=== PATIENT | female | born 1935 | race Hispanic/Latino ===

== ENCOUNTER 2017-10-05 13:41 | Observation (INO) | payer MEDICARE ==
[2017-10-05 14:02] VITALS: BMI 23.4
[2017-10-05 14:12] LABS: BASO # 0.1 K/uL (0.0-0.2); EOS # 0.1 K/uL (0.0-0.7); EOS % 1.8 % (0.0-4.0); HEMOGLOBIN 13.6 g/dL (11.0-16.0); LYMPH # 1.5 K/uL (1.0-4.3); LYMPH % 21.8 % (20.0-40.0); MEAN CELL VOLUME 89.1 fL (81.0-99.0); MEAN CORPUSCULAR HEMOGLOBIN 30.5 pg (27.0-31.0); MEAN CORPUSCULAR HGB CONC 34.2 g/dL (33.0-37.0); MEAN PLATELET VOLUME 8.1 fL (7.2-11.7); MONO # 0.6 K/uL (0.0-0.8); MONO % 8.6 % (0.0-10.0); NEUT # 4.5 K/uL (1.8-7.0); NEUT % 66.8 % (50.0-75.0); RBC 4.48 Mil/uL (3.80-5.20); RED CELL DISTRIBUTION WIDTH 13.5 % (11.5-14.5); WHITE BLOOD COUNT 6.7 K/uL (4.8-10.8)
[2017-10-05 14:20] LABS: INR 1.1; PROTHROMBIN TIME 12.5 SECONDS (9.7-12.2)
[2017-10-05 14:24] LABS: ALB/GLOB RATIO 1.3 (1.0-2.1); ALBUMIN 4.3 g/dL (3.5-5.0); CALCIUM 9.3 mg/dl (8.6-10.4); GFR AFRICAN-AMERICAN > 60; GFR NON-AFRICAN AMERICAN > 60; HDL CHOLESTEROL 33 mg/dL (30-70)
[2017-10-05 14:25] LABS: ALT/SGPT 30 U/L (9-52); AST/SGOT 28 U/L (14-36); BLOOD UREA NITROGEN 18 mg/dL (7-17)
--- NOTE | 2017-10-05 14:27 | CT ---
Date of service: 10/05/2017 PROCEDURE: CT HEAD WITHOUT CONTRAST. HISTORY: Code Stroke COMPARISON: 07/26/2016 TECHNIQUE: Axial computed tomography images were obtained through the head/brain without intravenous contrast. Radiation dose: Total exam DLP = 889.91 mGy-cm. This CT exam was performed using one or more of the following dose reduction techniques: Automated exposure control, adjustment of the mA and/or kV according to patient size, and/or use of iterative reconstruction technique. FINDINGS: HEMORRHAGE: No intracranial hemorrhage. BRAIN: No mass effect or edema. Mild atrophy consistent with age. Moderate patchy and confluent white matter lucency in the periventricular and deep/ subcortical white matter. Consistent with age-related microvascular ischemic change. No evidence of acute infarct. VENTRICLES: Unremarkable. No hydrocephalus. CALVARIUM: Unremarkable. PARANASAL SINUSES: There is a retention cyst or polyp in the inferior left maxillary antrum. MASTOID AIR CELLS: Unremarkable as visualized. No inflammatory changes. OTHER FINDINGS: None. IMPRESSION: No evidence of acute infarct. No intracranial hemorrhage. Age related atrophy and chronic white matter ischemic change. Findings in this examination were reported by telephone to Dr. Trinh 2:24 p.m. at 09/28
[2017-10-05 14:34] LABS: LDL CHOLESTEROL 106 mg/dL (0-129)
--- NOTE | 2017-10-05 14:41 | C.PDOC ---
History Of Present Illness 82-year-old female brought to the emergency department accompanied by son for evaluation of periods of confusion for the past several days. Symptoms were worse this morning, prompting ER visit. Patient is also having upper extremity tremors for approximately one month, for which she was seen by her primary doctor, Dr. Eisenberg, who referred pt to neurologist Dr Vasyl Pollock. As per son , patient was seen by Dr. Pollock, told Parkinson's is unliklely and had an outpatient EEG done last week (not yet read, Dr. Pollock apparently away on vacation). This morning patient was confused about which bathroom to use ( approx 6am), and later was unable to tell time on a clock (episoded lasted approx 2hrs). Patient denies headache, dizziness, facial droop, speech changes , extremity weakness, sensory changes, nausea/vomiting, chest pain, shortness of breath, fever, neck pain, or any other associated symptoms. Time Seen by Provider: 10/05/17 14:01 Chief Complaint (Nursing): Weakness/Neurological Deficit History Per: Patient, Family History/Exam Limitations: no limitations Onset/Duration Of Symptoms: Days Current Symptoms Are (Timing): Still Present Past Medical History Reviewed: Historical Data, Nursing Documentation, Vital Signs Vital Signs: Last Vital Signs Temp 97.9 F 10/06/17 07:45 Pulse 64 10/06/17 11:39 Resp 18 10/06/17 07:45 BP 155/81 H 10/06/17 10:21 Pulse Ox 96 10/06/17 11:40 - Medical History PMH: Arthritis, Back Problems, Gastritis, HTN, Osteoporosis Family History: States: No Known Family Hx - Social History Hx Alcohol Use: No Hx Substance Use: No - Immunization History Hx Tetanus Toxoid Vaccination: No Hx Influenza Vaccination: No Hx Pneumococcal Vaccination: No Review Of Systems Constitutional: Negative for: Fever, Chills Cardiovascular: Negative for: Chest Pain, Palpitations Respiratory: Negative for: Shortness of Breath Gastrointestinal: Negative for: Nausea, Vomiting Musculoskeletal: Negative for: Neck Pain, Back Pain Neurological: Positive for: Confusion. Negative for: Weakness, Numbness, Incoordination, Change in Speech, Seizures, Headache, Dizziness Physical Exam - Physical Exam Appears: Well, Non-toxic, No Acute Distress Skin: Normal Color, Warm, Dry, No Rash Head: Atraumatic, Normacephalic Eye(s): bilateral: Normal Inspection, PERRL, EOMI Oral Mucosa: Moist Neck: Normal, Normal ROM Cardiovascular: Rhythm Regular Respiratory: Normal Breath Sounds, No Rales, No Rhonchi, No Wheezing Gastrointestinal/Abdominal: Normal Exam, Bowel Sounds, Soft, No Tenderness Extremity: Normal ROM, No Pedal Edema, No Calf Tenderness Pulses: Left Dorsalis Pedis: Normal, Right Dorsalis Pedis: Normal Neurological/Psych: Oriented x3, Normal Speech, Normal Cognition, Normal Cranial Nerves, No Cerebellar Signs, Normal Motor, Normal Sensation, Normal Reflexes, No Expressive Aphasia, No Receptive Aphasia, No Dysarthria, No Romberg (NORMAL FINGER TO NOSE ), Other (occasionally mild tremors of B/L UEs) Gait: Steady (with walker) ED Course And Treatment - Laboratory Results Result Diagrams: 10/06/17 08:02 10/06/17 08:02 ECG: Interpreted By Me, Viewed By Me ECG Rhythm: Sinus Rhythm ECG Interpretation: Abnormal Interpretation Of ECG: Occasional PVC's. Normal axis. Rate From EC (BPM ) Progress Note: CT head, EKG, UA, blood work ordered and reviewed. Patient given PO ASA, PO Depakote, IV NS bolus. 3:30pm- Spoke with Dr. Eisenberg, agrees with admission to hospitalist service, is ok with our neurohospitalist Dr. Baxter seeing patient during this admission if unable to get Dr. Pollock. 3:40pm- Spoke with hospitalist Dr. Reilly, agrees with admission for tremors, AMS, r/o TIA /CVA vs seizures. - Physician Consult Information Physician Contacted: Bibi Baxter Outcome Of Conversation: Discussed patient with neurohospitalist Dr. Baxter, patient possible having seizures - recommends Depakote 1000mg now, then Depakote 500mg PO BID and MRI of brain with contrast. NIHSS Stroke Scale 2 - Date/Time Evaluation Performed Date Performed: 10/05/17 Time Performed: 13:55 When Was NIHSS Performed: Baseline - How Severe is the Stroke Level of Consciousness: 0=Alert LOC to Questions: 0=Both comments correct LOC to commands: 0=Obeys both correctly Best Gaze: 0=Normal Visual: 0=No visual loss Facial: 0=Normal Motor Arm - Left: 0=No drift Motor Arm - Right: 0=No drift Motor Leg - Left: 0=No drift Motor Leg - Right: 0=No drift Limb Ataxia: 0=Absent Sensory: 0=Normal Best Language: 0=No aphasia Dysarthia: 0=Normal articulation Extinction & Inattention (Neglect): 0=Normal, no object Score: 0 rTPA Inclusion/Exclusion - Refusal of Treatment Patient Refused Treatment: No - Inclusion Criteria for Altepase Patient is 18 years or Older: Yes The Clinical Diagnosis of Ischemic Stroke That is Causing a Potentially Disabling Neurological Deficit: No Time of Onset is Well Established to be Less Than 270 Minute Before Treatment Would Begin: No Risk/Benefit Discussed With Patient/Family Member Present: No Disposition - Disposition Disposition: HOSPITALIZED Disposition Time: 15:40 Condition: STABLE - Clinical Impression Clinical Impression: Occasional tremors, Altered mental status, TIA (transient ischemic attack), CVA (cerebral vascular accident) - Scribe Statement The provider has reviewed the documentation as recorded by the Scribe (Crystal Savage) All medical record entries made by the Scribe were at my direction and personally dictated by me. I have reviewed the chart and agree that the record accurately reflects my personal performance of the history, physical exam, medical decision making, and the department course for this patient. I have also personally directed, reviewed, and agree with the discharge instructions and disposition. Decision To Admit - Pt Status Changed To: Hospital Disposition Of: Observation - . Bed Request Type: Telemetry Admitting Physician: Koko Reilly Patient Diagnosis: Altered mental status, Occasional tremors, TIA (transient ischemic attack), CVA (cerebral vascular accident)
--- NOTE | 2017-10-05 14:41 | RAD ---
Date of service: 10/05/2017 HISTORY: Code Stroke COMPARISON: No prior. FINDINGS: LUNGS: No active pulmonary disease. PLEURA: Elevated right hemidiaphragm. Blunting of right costophrenic angle may reflect pleural effusion or chronic pleural thickening. There is a small collection of gas within air-fluid level seen adjacent to the right heart border, beneath the right hemidiaphragm, possibly within a loop of bowel. No pneumothorax. No left pleural effusion. . CARDIOVASCULAR: Normal. OSSEOUS STRUCTURES: No significant abnormalities. VISUALIZED UPPER ABDOMEN: Normal. OTHER FINDINGS: None. IMPRESSION: No infiltrate. Elevated right hemidiaphragm with possible small right pleural effusion. Gas with air-fluid level beneath right hemidiaphragm medially, adjacent to right heart border. Possibly within a loop of bowel.
[2017-10-05] MEDS ORDERED: Divalproex 500 mg DR Tab PO STA (14:47)
[2017-10-05] MEDS ORDERED: Divalproex 500 mg DR Tab PO ONE ×2 (15:25→15:30)
[2017-10-05] MEDS ORDERED: Sodium Chloride 0.9% 500 ML IV ONE (15:42)
[2017-10-05 15:43] LABS: SQUAMOUS EPITHIAL 1 /hpf (0-5); URINE BILIRUBIN NEGATIVE (NEGATIVE); URINE BLOOD 1+ (NEGATIVE); URINE CLARITY Clear (Clear); URINE COLOR Straw (YELLOW); URINE GLUCOSE (UA) NORMAL (Normal); URINE LEUKOCYTE ESTERASE NEG Leu/uL (Negative); URINE PROTEIN NEGATIVE (NEGATIVE); URINE UROBILINOGEN NORMAL mg/dL (0.2-1.0)
--- NOTE | 2017-10-05 15:51 | CP.PCM.HP ---
<Vazquez Mccracken - Last Filed: 10/05/17 17:34> History of Present Illness - History of Present Illness History of Present Illness: PGY-2 H&P for Hospitalist service CC: AMS, Tremors HPI: Patient is an 82 year old female, with PMHx of HTN presenting for confusion/muscle tremors. Son at bedside helping with history. Patient found alert, awake, and oriented x 3, and is aware of context of admission. Son states that over the past few days patient having increased periods of confusion. Patient has been forgetting names of relatives over the past few months. Son also reports that patient has been confused about which bathroom to use and later was unable to tell time on a clock this morning. Son also states that over the past week patient has been having "the shakes - sometimes violently" that mostly occur "in the morning." These events prompted ED visit. Patient was referred to Neurologist, Dr. Pollock, by PMD, Dr. Eisenberg. Patient's son report patient had outpatient EEG which has not been read yet due to Dr. Pollock being away on vacation. Patient denies headache, dizziness, syncopal episodes, seizure like activity, facial droop, speech changes, extremity weakness, sensory changes, nausea/vomiting, chest pain, shortness of breath, fever, neck pain, or any other associated symptoms. PMHx: as above PSHx: denies SHx: Denies tobacco or illicit drugs, admits occasional EtOH "but not for years " Fam Hx: Mother - at 54 - brain cancer; Father - at 75 - DC Allergies: PCN (unknown reaction) Home meds: Lopressor 25mg PO BID, Omeprazole 20mg PO Daily, ASA 81mg PO Daily, Lipitor 10mg PO HS, Valium 5mg PO PRN for anxiety PMD offered Namenda, but patient refused Outpatient care team: PMD: Faina Neuro: Phill Cardio: Rathe Present on Admission - Present on Admission Any Indicators Present on Admission: No Review of Systems - Constitutional Constitutional: absent: Chills, Fever - EENT Eyes: absent: Change in Vision, Spots in Vision Nose/Mouth/Throat: absent: Nasal Congestion, Sore Throat - Cardiovascular Cardiovascular: absent: Chest Pain, Dyspnea - Respiratory Respiratory: absent: Cough, Dyspnea, Chest Congestion - Gastrointestinal Gastrointestinal: absent: Abdominal Pain, Nausea, Vomiting - Genitourinary Genitourinary: absent: Dysuria, Hematuria - Musculoskeletal Musculoskeletal: absent: Back Pain, Numbness - Neurological Neurological: Confusion. absent: Headaches, Syncope, Weakness - Psychiatric Psychiatric: Anxiety. absent: Depression Past Patient History - Past Social History Smoking Status: Never Smoked - CARDIAC Hx Hypertension: Yes - MUSCULOSKELETAL/RHEUMATOLOGICAL Hx Arthritis: Yes Hx Osteoporosis: Yes - GASTROINTESTINAL Hx Gastritis: Yes - PSYCHIATRIC Hx Substance Use: No - SURGICAL HISTORY Hx Surgeries: No - ANESTHESIA Hx Anesthesia: No Meds Allergies/Adverse Reactions: Allergies Allergy/AdvReac Type Severity Reaction Status Date / Time Penicillins Allergy Verified 10/05/17 14:06 Physical Exam - Constitutional Appears: Non-toxic, No Acute Distress - Head Exam Head Exam: ATRAUMATIC, NORMAL INSPECTION, NORMOCEPHALIC - Eye Exam Eye Exam: EOMI. absent: Scleral icterus Pupil Exam: PERRL - ENT Exam ENT Exam: Mucous Membranes Moist - Respiratory Exam Respiratory Exam: Clear to Auscultation Bilateral, NORMAL BREATHING PATTERN - Cardiovascular Exam Cardiovascular Exam: REGULAR RHYTHM, +S1, +S2 - GI/Abdominal Exam GI & Abdominal Exam: Normal Bowel Sounds, Soft. absent: Guarding, Tenderness - Extremities Exam Extremities exam: Positive for: normal inspection. Negative for: pedal edema - Back Exam Additional comments: lordosis/scoliosis - Neurological Exam Neurological exam: Alert, CN II-XII Intact, Oriented x3 Additional comments: No cogwheel rigidity appreciated - Expanded Neurological Exam Expanded Patient oriented to: person, place, time Cranial nerves: EOM's Intact: Normal, Facial Sensation: Normal, Gag Reflex: Normal, Nystagmus: Normal, Tongue Deviation: Normal Ataxia: No (no shuffling gait) Cerebellar Function: Romberg: Normal Upper motor neuron: Babinski Sign: Normal, Pronator Drift: Normal Sensory exam: Lower Extremity Light Touch: Normal, Upper Extremity Light Touch: Normal Neuro motor strength exam: Left Upper Extremity: 5, Right Upper Extremity: 5, Left Lower Extremity: 5, Right Lower Extremity: 5 Coma Scale Eye Opening: SPONTANEOUS Coma Scale Motor Response: OBEYS COMMANDS Coma Scale Verbal: Oriented Coma Scale Total: 15 - Psychiatric Exam Psychiatric exam: Anxious - Skin Skin Exam: Normal Color, Warm Results - Vital Signs Recent Vital Signs: Last Vital Signs Temp 97.8 F 10/05/17 13:54 Pulse 82 10/05/17 13:54 Resp 20 10/05/17 13:54 BP 170/82 H 10/05/17 13:54 Pulse Ox 100 10/05/17 13:54 - Labs Result Diagrams: 10/05/17 14:07 10/05/17 14:07 Labs: Laboratory Results - last 24 hr 10/05/17 10/05/17 10/05/17 14:07 14:07 14:07 WBC 6.7 RBC 4.48 Hgb 13.6 Hct 39.9 MCV 89.1 MCH 30.5 MCHC 34.2 RDW 13.5 Plt Count 250 MPV 8.1 Neut % (Auto) 66.8 Lymph % (Auto) 21.8 Gregory % (Auto) 8.6 Eos % (Auto) 1.8 Baso % (Auto) 1.0 Neut # (Auto) 4.5 Lymph # (Auto) 1.5 Gregory # (Auto) 0.6 Eos # (Auto) 0.1 Baso # (Auto) 0.1 PT 12.5 H INR 1.1 APTT 31 Sodium 142 Potassium 4.6 Chloride 104 Carbon Dioxide 26 Anion Gap 17 BUN 18 H Creatinine 0.7 Est GFR ( Amer) > 60 Est GFR (Non-Af Amer) > 60 Random Glucose 94 Hemoglobin A1c Calcium 9.3 Total Bilirubin 0.6 AST 28 ALT 30 Alkaline Phosphatase 71 Troponin I < 0.0120 Total Protein 7.6 Albumin 4.3 Globulin 3.3 Albumin/Globulin Ratio 1.3 Triglycerides 108 D Cholesterol 162 LDL Cholesterol Direct 106 HDL Cholesterol 33 Blood Type Antibody Screen 10/05/17 10/05/17 14:07 14:07 WBC RBC Hgb Hct MCV MCH MCHC RDW Plt Count MPV Neut % (Auto) Lymph % (Auto) Gregory % (Auto) Eos % (Auto) Baso % (Auto) Neut # (Auto) Lymph # (Auto) Gregory # (Auto) Eos # (Auto) Baso # (Auto) PT INR APTT Sodium Potassium Chloride Carbon Dioxide Anion Gap BUN Creatinine Est GFR ( Amer) Est GFR (Non-Af Amer) Random Glucose Hemoglobin A1c 6.2 Calcium Total Bilirubin AST ALT Alkaline Phosphatase Troponin I Total Protein Albumin Globulin Albumin/Globulin Ratio Triglycerides Cholesterol LDL Cholesterol Direct HDL Cholesterol Blood Type B POSITIVE Antibody Screen Negative Assessment & Plan - Assessment and Plan (Free Text) Plan: AMS Observe on tele CT Head (10/05/17): Negative for acute intracranial pathology. Profound atrophy with no decreased attenuation (see full report) UA (10/05/17): No nitrite/LE EKG (10/05/17): NSR @ 76 bpm, PVCs, No acute ST/T wave changes Troponin negative x 1 Dr. Baxter/Reyes consulted - mild dementia - f/u MRI of brain ASA 81mg PO Daily -ASA 325mg PO STAT in ED Depakote 1000mg PO STAT in ED Ativan 0.5mg IV ONCE f/u MRI, Urine Culture, TSH, Free T4, T3, Ammonia, B12 Tremors No pill rolling tremor Neuro Dr Baxter - possibility of thyroid induced or essential tremors - f/u thyroid stories HTN Lopressor 25mg PO BID Monitor Hematuria UA: 1+ blood Monitor IGT A1C 6.2 Lipid panel: LDL 106, HDL 33, T chol 162, TG 108 Anxiety Pt received Ativan 0.5mg IV once prior to MRI Xanax 0.25mg PO Q8H PRN anxiety Hyperlipidemia Home Lipitor non-formulary Start Crestor 5mg PO HS Lipid panel: LDL 106, HDL 33, T chol 162, TG 108 Prophylaxis Heparin 5000units Q12H Protonix 20mg PO Daily SCDs Heart healthy diet PT/OT Vazquez Mccracken PGY-2 D/w attending, Dr. Reilly <Koko Reilly - Last Filed: 10/06/17 07:37> Results - Vital Signs Recent Vital Signs: Last Vital Signs Temp 98.0 F 10/06/17 04:34 Pulse 57 L 10/06/17 04:34 Resp 20 10/06/17 04:34 BP 142/69 10/06/17 04:34 Pulse Ox 96 10/06/17 04:34 - Labs Result Diagrams: 10/05/17 14:07 10/05/17 14:07 Labs: Laboratory Results - last 24 hr 10/05/17 10/05/17 10/05/17 13:59 14:07 14:07 WBC 6.7 RBC 4.48 Hgb 13.6 Hct 39.9 MCV 89.1 MCH 30.5 MCHC 34.2 RDW 13.5 Plt Count 250 MPV 8.1 Neut % (Auto) 66.8 Lymph % (Auto) 21.8 Gregory % (Auto) 8.6 Eos % (Auto) 1.8 Baso % (Auto) 1.0 Neut # (Auto) 4.5 Lymph # (Auto) 1.5 Gregory # (Auto) 0.6 Eos # (Auto) 0.1 Baso # (Auto) 0.1 PT 12.5 H INR 1.1 APTT 31 Sodium Potassium Chloride Carbon Dioxide Anion Gap BUN Creatinine Est GFR ( Amer) Est GFR (Non-Af Amer) POC Glucose (mg/dL) 94 Random Glucose Hemoglobin A1c Calcium Total Bilirubin AST ALT Alkaline Phosphatase Ammonia Troponin I Total Protein Albumin Globulin Albumin/Globulin Ratio Triglycerides Cholesterol LDL Cholesterol Direct HDL Cholesterol Vitamin B12 Urine Color Urine Clarity Urine pH Ur Specific [place] Urine Protein Urine Glucose (UA) Urine Ketones Urine Blood Urine Nitrate Urine Bilirubin Urine Urobilinogen Ur Leukocyte Esterase Urine WBC (Auto) Urine RBC (Auto) Ur Squamous Epith Cells Blood Type Antibody Screen 10/05/17 10/05/17 10/05/17 14:07 14:07 14:07 WBC RBC Hgb Hct MCV MCH MCHC RDW Plt Count MPV Neut % (Auto) Lymph % (Auto) Gregory % (Auto) Eos % (Auto) Baso % (Auto) Neut # (Auto) Lymph # (Auto) Gregory # (Auto) Eos # (Auto) Baso # (Auto) PT INR APTT Sodium 142 Potassium 4.6 Chloride 104 Carbon Dioxide 26 Anion Gap 17 BUN 18 H Creatinine 0.7 Est GFR ( Amer) > 60 Est GFR (Non-Af Amer) > 60 POC Glucose (mg/dL) Random Glucose 94 Hemoglobin A1c 6.2 Calcium 9.3 Total Bilirubin 0.6 AST 28 ALT 30 Alkaline Phosphatase 71 Ammonia Troponin I < 0.0120 Total Protein 7.6 Albumin 4.3 Globulin 3.3 Albumin/Globulin Ratio 1.3 Triglycerides 108 D Cholesterol 162 LDL Cholesterol Direct 106 HDL Cholesterol 33 Vitamin B12 Urine Color Urine Clarity Urine pH Ur Specific [place] Urine Protein Urine Glucose (UA) Urine Ketones Urine Blood Urine Nitrate Urine Bilirubin Urine Urobilinogen Ur Leukocyte Esterase Urine WBC (Auto) Urine RBC (Auto) Ur Squamous Epith Cells Blood Type B POSITIVE Antibody Screen Negative 10/05/17 10/05/17 10/05/17 15:37 17:57 17:57 WBC RBC Hgb Hct MCV MCH MCHC RDW Plt Count MPV Neut % (Auto) Lymph % (Auto) Gregory % (Auto) Eos % (Auto) Baso % (Auto) Neut # (Auto) Lymph # (Auto) Gregory # (Auto) Eos # (Auto) Baso # (Auto) PT INR APTT Sodium Potassium Chloride Carbon Dioxide Anion Gap BUN Creatinine Est GFR ( Amer) Est GFR (Non-Af Amer) POC Glucose (mg/dL) Random Glucose Hemoglobin A1c Calcium Total Bilirubin AST ALT Alkaline Phosphatase Ammonia < 9 L Troponin I Total Protein Albumin Globulin Albumin/Globulin Ratio Triglycerides Cholesterol LDL Cholesterol Direct HDL Cholesterol Vitamin B12 634 Urine Color Straw Urine Clarity Clear Urine pH 7.0 Ur Specific [place] 1.004 Urine Protein Negative Urine Glucose (UA) Normal Urine Ketones Negative Urine Blood 1+ H Urine Nitrate Negative Urine Bilirubin Negative Urine Urobilinogen Normal Ur Leukocyte Esterase Neg Urine WBC (Auto) 1 Urine RBC (Auto) 5 H Ur Squamous Epith Cells 1 Blood Type Antibody Screen 10/06/17 06:34 WBC RBC Hgb Hct MCV MCH MCHC RDW Plt Count MPV Neut % (Auto) Lymph % (Auto) Gregory % (Auto) Eos % (Auto) Baso % (Auto) Neut # (Auto) Lymph # (Auto) Gregory # (Auto) Eos # (Auto) Baso # (Auto) PT INR APTT Sodium Potassium Chloride Carbon Dioxide Anion Gap BUN Creatinine Est GFR ( Amer) Est GFR (Non-Af Amer) POC Glucose (mg/dL) 84 Random Glucose Hemoglobin A1c Calcium Total Bilirubin AST ALT Alkaline Phosphatase Ammonia Troponin I Total Protein Albumin Globulin Albumin/Globulin Ratio Triglycerides Cholesterol LDL Cholesterol Direct HDL Cholesterol Vitamin B12 Urine Color Urine Clarity Urine pH Ur Specific [place] Urine Protein Urine Glucose (UA) Urine Ketones Urine Blood Urine Nitrate Urine Bilirubin Urine Urobilinogen Ur Leukocyte Esterase Urine WBC (Auto) Urine RBC (Auto) Ur Squamous Epith Cells Blood Type Antibody Screen Attending/Attestation - Attestation I have personally seen and examined this patient.: Yes I have fully participated in the care of the patient.: Yes I have reviewed all pertinent clinical information: Yes Notes (Text): 10/06/17 07:31 Medical attending: Patient was seen and examined by me. Agree with the above note by the resident Patient was seen with the resident as well as with neurology at bedside. The patient's family member was also present as well. She is awake, alert, and orientated x 3 when we saw. She was also able to do simple mathematics as well for the neurologist on exam. There is noticeable on exam some upper extremity weakness however she was fully functional. She could also walk very fast as well - she DID not have a shuffling gait which may suggest Parkinson Disease. The upper extremity weakness and tremors area not seizures. Patient will have MRI and we will watch her overnight. Most likely DC home tomorrow and I discussed with the patient's family who was present I also updated the patient's PMD as well thank you Koko Reilly
--- NOTE | 2017-10-05 16:55 | CP.PCM.CON ---
History of Present Illness - History of Present Illness History of Present Illness: 82 yr old woman with pmh of possible dementia, who was brought in today because of spells of confusion associated with dysarthria and some aphasia as per son. She was evaluated by with an outpatient EEG done and results are pending. This morning patient was confused about which bathroom to use (approx 6am), and later was unable to tell time on a clock (episoded lasted approx 2hrs). Patient denies headache, dizziness, facial droop, speech changes, extremity weakness, sensory changes, nausea/vomiting, chest pain, shortness of breath, fever, neck pain, or any other associated symptoms. On exam: Alert aware and oriented times 3. Knows the year, date and day. Knows the president. MMS: . She is proficient with clock drawing, pentagons, and calculations. No facial asymmetry. Cn 2-12 normal. Speech fluent. Visual jerome full. EOMI. Motor: strength normals. Sensory: intact ft, pin, position sense. Gait: patient has kyphosis but she walks briskly, has no postural instability, no bradykinesia, but she has a high amplitude resting tremor. There is no cogwheel rigidity. +2 dtr ul and ll bl. Toes downgoing. No clonus. Cerebellar: f/n no dysmetria. Past Patient History - Past Social History Smoking Status: Never Smoked - CARDIAC Hx Hypertension: Yes - MUSCULOSKELETAL/RHEUMATOLOGICAL Hx Arthritis: Yes Hx Osteoporosis: Yes - GASTROINTESTINAL Hx Gastritis: Yes - PSYCHIATRIC Hx Substance Use: No - SURGICAL HISTORY Hx Surgeries: No - ANESTHESIA Hx Anesthesia: No Meds Allergies/Adverse Reactions: Allergies Allergy/AdvReac Type Severity Reaction Status Date / Time Penicillins Allergy Verified 10/05/17 14:06 - Medications Medications: Current Medications Aspirin (Ecotrin) 81 mg PO DAILY DOUG Lorazepam (Ativan) 0.5 mg IVP ONCE PRN PRN Reason: Anxiety Metoprolol Tartrate (Lopressor) 25 mg PO BID DOUG Results - Vital Signs Recent Vital Signs: Last Vital Signs Temp 97.8 F 10/05/17 13:54 Pulse 82 10/05/17 13:54 Resp 20 10/05/17 13:54 BP 170/82 H 10/05/17 13:54 Pulse Ox 100 10/05/17 13:54 - Labs Result Diagrams: 10/06/17 08:02 10/06/17 08:02 Labs: Laboratory Results - last 24 hr 10/05/17 10/05/17 10/05/17 14:07 14:07 14:07 WBC 6.7 RBC 4.48 Hgb 13.6 Hct 39.9 MCV 89.1 MCH 30.5 MCHC 34.2 RDW 13.5 Plt Count 250 MPV 8.1 Neut % (Auto) 66.8 Lymph % (Auto) 21.8 [place] % (Auto) 8.6 Eos % (Auto) 1.8 Baso % (Auto) 1.0 Neut # (Auto) 4.5 Lymph # (Auto) 1.5 [place] # (Auto) 0.6 Eos # (Auto) 0.1 Baso # (Auto) 0.1 PT 12.5 H INR 1.1 APTT 31 Sodium 142 Potassium 4.6 Chloride 104 Carbon Dioxide 26 Anion Gap 17 BUN 18 H Creatinine 0.7 Est GFR ( Amer) > 60 Est GFR (Non-Af Amer) > 60 Random Glucose 94 Hemoglobin A1c Calcium 9.3 Total Bilirubin 0.6 AST 28 ALT 30 Alkaline Phosphatase 71 Troponin I < 0.0120 Total Protein 7.6 Albumin 4.3 Globulin 3.3 Albumin/Globulin Ratio 1.3 Triglycerides 108 D Cholesterol 162 LDL Cholesterol Direct 106 HDL Cholesterol 33 Urine Color Urine Clarity Urine pH Ur Specific [place] Urine Protein Urine Glucose (UA) Urine Ketones Urine Blood Urine Nitrate Urine Bilirubin Urine Urobilinogen Ur Leukocyte Esterase Urine WBC (Auto) Urine RBC (Auto) Ur Squamous Epith Cells Blood Type Antibody Screen 10/05/17 10/05/17 10/05/17 14:07 14:07 15:37 WBC RBC Hgb Hct MCV MCH MCHC RDW Plt Count MPV Neut % (Auto) Lymph % (Auto) [place] % (Auto) Eos % (Auto) Baso % (Auto) Neut # (Auto) Lymph # (Auto) [place] # (Auto) Eos # (Auto) Baso # (Auto) PT INR APTT Sodium Potassium Chloride Carbon Dioxide Anion Gap BUN Creatinine Est GFR ( Amer) Est GFR (Non-Af Amer) Random Glucose Hemoglobin A1c 6.2 Calcium Total Bilirubin AST ALT Alkaline Phosphatase Troponin I Total Protein Albumin Globulin Albumin/Globulin Ratio Triglycerides Cholesterol LDL Cholesterol Direct HDL Cholesterol Urine Color Straw Urine Clarity Clear Urine pH 7.0 Ur Specific [place] 1.004 Urine Protein Negative Urine Glucose (UA) Normal Urine Ketones Negative Urine Blood 1+ H Urine Nitrate Negative Urine Bilirubin Negative Urine Urobilinogen Normal Ur Leukocyte Esterase Neg Urine WBC (Auto) 1 Urine RBC (Auto) 5 H Ur Squamous Epith Cells 1 Blood Type B POSITIVE Antibody Screen Negative - Imaging and Cardiology CT scan - head Status: Image reviewed by me, Report reviewed by me (CT head: shows profound atrophy with no decreased attenuation. ) Assessment & Plan - Assessment and Plan (Free Text) Assessment: 82 yr old woman with tremors and anxiety and some memory deficits that are not likely to be dementia, but possibly secondary to a metabolic or small ischemic stroke, which is missed on CT scan. I feel that her tremor may be secondary to thyroid disease or an essential tremor, less likely to be parkinsons disease. Plan: 1. MRI Brain without pankaj 2. thyroid panel. 3. Ammonia level. 4. B12 level 5. Admit overnight and precautions for delirium. Thank you Dr. rojas and PGY -2
[2017-10-06 04:37] VITALS: O2SAT 96
[2017-10-06 07:59] VITALS: RESP 18; TEMP 97.9
[2017-10-06 08:17] LABS: EOS # 0.1 K/uL (0.0-0.7); EOS % 2.9 % (0.0-4.0); HEMOGLOBIN 12.4 g/dL (11.0-16.0); LYMPH # 1.3 K/uL (1.0-4.3); LYMPH % 26.7 % (20.0-40.0); MEAN CELL VOLUME 89.6 fL (81.0-99.0); MEAN CORPUSCULAR HEMOGLOBIN 30.3 pg (27.0-31.0); MEAN CORPUSCULAR HGB CONC 33.9 g/dL (33.0-37.0); MEAN PLATELET VOLUME 8.4 fL (7.2-11.7); MONO # 0.4 K/uL (0.0-0.8); MONO % 8.9 % (0.0-10.0); NEUT # 2.9 K/uL (1.8-7.0); NEUT % 60.5 % (50.0-75.0); RBC 4.09 Mil/uL (3.80-5.20); RED CELL DISTRIBUTION WIDTH 13.3 % (11.5-14.5); WHITE BLOOD COUNT 4.8 K/uL (4.8-10.8)
[2017-10-06 08:40] LABS: ALB/GLOB RATIO 1.2 (1.0-2.1); ALBUMIN 3.2 g/dL (3.5-5.0); ALT/SGPT 24 U/L (9-52); AST/SGOT 27 U/L (14-36); BLOOD UREA NITROGEN 16 mg/dL (7-17); CALCIUM 8.5 mg/dl (8.6-10.4); GFR AFRICAN-AMERICAN > 60; GFR NON-AFRICAN AMERICAN > 60
[2017-10-06 09:10] LABS: T3 1.45 nmol/L (1.49-2.60)
[2017-10-06] MEDS ORDERED: Pantoprazole 20 mg EC Tab PO SCH (10:00)
[2017-10-06 10:21] VITALS: BP 155/81
--- NOTE | 2017-10-06 10:48 | MRI ---
Date of service: 10/05/2017 PROCEDURE: MRI BRAIN WITHOUT CONTRAST HISTORY: upper extremity tremors, periods confusion COMPARISON: Comparison is made to the previous CT of the brain dated 10/05/[address] of the head dated 07/26/2016 TECHNIQUE: Multiplanar, multisequence MR images of the brain were obtained without intravenous contrast enhancement. FINDINGS: HEMORRHAGE: None DWI: No evidence of an acute or early subacute infarction. BRAIN PARENCHYMA: No mass effect or edema. Moderate atrophy is noted. Moderate to extensive white matter changes noted likely represent chronic microvascular ischemic disease. VENTRICLES: Unremarkable. No hydrocephalus. CRANIUM: Unremarkable. ORBITS: Grossly unremarkable. PARANASAL SINUSES/MASTOIDS: Clear VASCULAR SYSTEM: Skull base flow voids intact. OTHER FINDINGS: None. IMPRESSION: Suboptimal study degraded by motion artifact. No evidence of acute infarction or acute pathology in the brain. No evidence of mass lesion mass effect or midline shift. Moderate atrophy and moderate chronic microvascular white matter ischemic disease. Preliminary report was submitted by virtual Radiology.
[2017-10-06 11:41] VITALS: PULSE 64
--- NOTE | 2017-10-06 21:09 | CP.PCM.DIS ---
Addendum entered and electronically signed by Ranjan Amaro 10/06/17 21:10: Time of exam 10/06 at 9:00 am Original Note: <Ranjan Amaro - Last Filed: 10/06/17 20:54> Provider - Provider Date of Admission: 10/05/17 15:40 Attending physician: Koko Reilly DO Time Spent in preparation of Discharge (in minutes): 50 Hospital Course - Lab Results Lab Results: Micro Results 10/05/17 15:37 Urine Urine Culture - Final No Growth (<1,000 CFU/ML) Most Recent Lab Values WBC 4.8 K/uL (4.8-10.8) 10/06/17 08:02 RBC 4.09 Mil/uL (3.80-5.20) 10/06/17 08:02 Hgb 12.4 g/dL (11.0-16.0) 10/06/17 08:02 Hct 36.6 % (34.0-47.0) 10/06/17 08:02 MCV 89.6 fL (81.0-99.0) 10/06/17 08:02 MCH 30.3 pg (27.0-31.0) 10/06/17 08:02 MCHC 33.9 g/dL (33.0-37.0) 10/06/17 08:02 RDW 13.3 % (11.5-14.5) 10/06/17 08:02 Plt Count 224 K/uL (130-400) 10/06/17 08:02 MPV 8.4 fL (7.2-11.7) 10/06/17 08:02 Neut % (Auto) 60.5 % (50.0-75.0) 10/06/17 08:02 Lymph % (Auto) 26.7 % (20.0-40.0) 10/06/17 08:02 [place] % (Auto) 8.9 % (0.0-10.0) 10/06/17 08:02 Eos % (Auto) 2.9 % (0.0-4.0) 10/06/17 08:02 Baso % (Auto) 1.0 % (0.0-2.0) 10/06/17 08:02 Neut # (Auto) 2.9 K/uL (1.8-7.0) 10/06/17 08:02 Lymph # (Auto) 1.3 K/uL (1.0-4.3) 10/06/17 08:02 [place] # (Auto) 0.4 K/uL (0.0-0.8) 10/06/17 08:02 Eos # (Auto) 0.1 K/uL (0.0-0.7) 10/06/17 08:02 Baso # (Auto) 0.0 K/uL (0.0-0.2) 10/06/17 08:02 PT 12.5 SECONDS (9.7-12.2) H 10/05/17 14:07 INR 1.1 10/05/17 14:07 APTT 31 SECONDS (21-34) 10/05/17 14:07 Sodium 140 mmol/L (132-148) 10/06/17 08:02 Potassium 3.8 mmol/L (3.6-5.2) 10/06/17 08:02 Chloride 104 mmol/L (98-107) 10/06/17 08:02 Carbon Dioxide 28 mmol/L (22-30) 10/06/17 08:02 Anion Gap 13 (10-20) 10/06/17 08:02 BUN 16 mg/dL (7-17) 10/06/17 08:02 Creatinine 0.6 mg/dL (0.7-1.2) L 10/06/17 08:02 Est GFR ( Amer) > 60 10/06/17 08:02 Est GFR (Non-Af Amer) > 60 10/06/17 08:02 POC Glucose (mg/dL) 81 mg/dL (65-110) 10/06/17 11:24 Random Glucose 81 mg/dL (65-105) 10/06/17 08:02 Hemoglobin A1c 6.2 % (4.2-6.5) 10/05/17 14:07 Calcium 8.5 mg/dl (8.6-10.4) L 10/06/17 08:02 Phosphorus 3.2 mg/dL (2.5-4.5) 10/06/17 08:02 Magnesium 1.7 mg/dL (1.6-2.3) 10/06/17 08:02 Total Bilirubin 0.5 mg/dL (0.2-1.3) 10/06/17 08:02 AST 27 U/L (14-36) 10/06/17 08:02 ALT 24 U/L (9-52) 10/06/17 08:02 Alkaline Phosphatase 59 U/L (38-126) 10/06/17 08:02 Ammonia < 9 umol/L (9-33) L 10/05/17 17:57 Troponin I < 0.0120 ng/mL (0.00-0.120) 10/05/17 14:07 Total Protein 6.0 g/dL (6.3-8.3) L 10/06/17 08:02 Albumin 3.2 g/dL (3.5-5.0) L D 10/06/17 08:02 Globulin 2.7 gm/dL (2.2-3.9) 10/06/17 08:02 Albumin/Globulin Ratio 1.2 (1.0-2.1) 10/06/17 08:02 Triglycerides 108 mg/dL (0-149) D 10/05/17 14:07 Cholesterol 162 mg/dL (0-199) 10/05/17 14:07 LDL Cholesterol Direct 106 mg/dL (0-129) 10/05/17 14:07 HDL Cholesterol 33 mg/dL (30-70) 10/05/17 14:07 Vitamin B12 634 pg/mL (239-931) 10/05/17 17:57 Free T4 1.40 ng/dL (0.78-2.19) 10/06/17 08:02 Total T3 1.45 nmol/L (1.49-2.60) L 10/06/17 08:02 TSH 3rd Generation 2.60 mIU/L (0.46-4.68) 10/06/17 08:02 Urine Color Straw (YELLOW) 10/05/17 15:37 Urine Clarity Clear (Clear) 10/05/17 15:37 Urine pH 7.0 (5.0-8.0) 10/05/17 15:37 Ur Specific [place] 1.004 (1.003-1.030) 10/05/17 15:37 Urine Protein Negative mg/dL (NEGATIVE) 10/05/17 15:37 Urine Glucose (UA) Normal mg/dL (Normal) 10/05/17 15:37 Urine Ketones Negative mg/dL (NEGATIVE) 10/05/17 15:37 Urine Blood 1+ (NEGATIVE) H 10/05/17 15:37 Urine Nitrate Negative (NEGATIVE) 10/05/17 15:37 Urine Bilirubin Negative (NEGATIVE) 10/05/17 15:37 Urine Urobilinogen Normal mg/dL (0.2-1.0) 10/05/17 15:37 Ur Leukocyte Esterase Neg [place]/uL (Negative) 10/05/17 15:37 Urine WBC (Auto) 1 /hpf (0-5) 10/05/17 15:37 Urine RBC (Auto) 5 /hpf (0-3) H 10/05/17 15:37 Ur Squamous Epith Cells 1 /hpf (0-5) 10/05/17 15:37 Blood Type B POSITIVE 10/05/17 14:07 Antibody Screen Negative 10/05/17 14:07 - Hospital Course Hospital Course: Patient is an 82 year old female, with PMHx of HTN presenting for confusion/muscle tremors. Son at bedside helping with history. Patient found alert, awake, and oriented x 3, and is aware of context of admission. Son states that over the past few days patient having increased periods of confusion. Patient has been forgetting names of relatives over the past few months. Son also reports that patient has been confused about which bathroom to use and later was unable to tell time on a clock this morning. Son also states that over the past week patient has been having "the shakes - sometimes violently" that mostly occur "in the morning." These events prompted ED visit. Patient was referred to Neurologist, Dr. Pollock, by PMD, Dr. Eisenberg. Patient's son report patient had outpatient EEG which has not been read yet due to Dr. Pollock being away on vacation. Patient denies headache, dizziness, syncopal episodes, seizure like activity, facial droop, speech changes, extremity weakness, sensory changes, nausea/vomiting, chest pain, shortness of breath, fever, neck pain, or any other associated symptoms. Patient was admitted for Altered Mental Status. patient was placed and monitored on Telemetry. CT Head (10/05/17): Negative for acute intracranial pathology. Profound atrophy with no decreased attenuation. UA (10/05/17): No nitrite/LE. EKG (10/05/17): NSR @ 76 bpm, PVCs, No acute ST/T wave changes. Troponin negative x 1. MRI head (10/06) without contrast showed no evidence of acute infarction or acute pathology in the brain. Moderate atrophy is noted and moderate chronic microvascular white matter ischemic disease. Pt received Ativan 0.5mg IV once prior to MRI. Xanax 0.25mg PO Q8H PRN anxiety. Neuro Dr Baxter was consulted. free T4 and TSH within normal limits. Patient HTN was managed with Lopressor 25mg PO BID. For prophylaxis, patient was given Heparin 5000units Q12H, Protonix 20mg PO Daily. Patient stable for discharge per Dr. Koko Reilly. Patient should resume all home medications. Patient should make an appointment and follow up with PMD Dr Eisenberg within one week. Patient should return to ED immediately if symptoms return or worsen. Instructions discussed with patient and son Danny Escalante who understood and agreed. This is a short summary of Patient's hospitalization course. For more information, please refer to Patient's EMR. - Date & Time of H&P Date of H&P: 10/06/17 Time of H&P: 21:09 Discharge Exam - Head Exam Head Exam: ATRAUMATIC, NORMAL INSPECTION, NORMOCEPHALIC - Eye Exam Eye Exam: EOMI, Normal appearance, PERRL - ENT Exam ENT Exam: Mucous Membranes Moist, Normal Exam - Neck Exam Neck exam: Full Rom, Normal Inspection - Respiratory Exam Respiratory Exam: Clear to PA & Lateral, NORMAL BREATHING PATTERN, UNREMARKABLE - Cardiovascular Exam Cardiovascular Exam: REGULAR RHYTHM, +S1, +S2 - GI/Abdominal Exam GI & Abdominal Exam: Normal Bowel Sounds, Soft, Unremarkable. absent: Distended , Tenderness - Extremities Exam Extremities exam: full ROM, normal inspection - Back Exam Back exam: FULL ROM, NORMAL INSPECTION - Neurological Exam Neurological exam: Alert, CN II-XII Intact, Oriented x3 - Psychiatric Exam Psychiatric exam: Normal Affect, Normal Mood - Skin Skin Exam: Dry, Intact, Normal Color, Warm Discharge Plan - Follow Up Plan Condition: GOOD Disposition: HOME/ ROUTINE Instructions: Stroke (DC), Transient Ischemic Attack (DC), Going Up and Down Curbs or Stairs With a Walker or Crutches Additional Instructions: Patient stable for discharge per Dr. Koko Reilly. Patient should resume all home medications. Patient should make an appointment and follow up with PMD Dr Eisenberg within one week. Patient should return to ED immediately if symptoms return or worsen. Instructions discussed with patient and son Danny Escalante who understood and agreed. Referrals: Mojgan Eisenberg MD [Staff Provider] - <Koko Reilly - Last Filed: 10/07/17 07:30> Provider - Provider Date of Admission: 10/05/17 15:40 Attending physician: Koko Reilly, Hospital Course - Lab Results Lab Results: Micro Results 10/05/17 15:37 Urine Urine Culture - Final No Growth (<1,000 CFU/ML) Most Recent Lab Values WBC 4.8 K/uL (4.8-10.8) 10/06/17 08:02 RBC 4.09 Mil/uL (3.80-5.20) 10/06/17 08:02 Hgb 12.4 g/dL (11.0-16.0) 10/06/17 08:02 Hct 36.6 % (34.0-47.0) 10/06/17 08:02 MCV 89.6 fL (81.0-99.0) 10/06/17 08:02 MCH 30.3 pg (27.0-31.0) 10/06/17 08:02 MCHC 33.9 g/dL (33.0-37.0) 10/06/17 08:02 RDW 13.3 % (11.5-14.5) 10/06/17 08:02 Plt Count 224 K/uL (130-400) 10/06/17 08:02 MPV 8.4 fL (7.2-11.7) 10/06/17 08:02 Neut % (Auto) 60.5 % (50.0-75.0) 10/06/17 08:02 Lymph % (Auto) 26.7 % (20.0-40.0) 10/06/17 08:02 [place] % (Auto) 8.9 % (0.0-10.0) 10/06/17 08:02 Eos % (Auto) 2.9 % (0.0-4.0) 10/06/17 08:02 Baso % (Auto) 1.0 % (0.0-2.0) 10/06/17 08:02 Neut # (Auto) 2.9 K/uL (1.8-7.0) 10/06/17 08:02 Lymph # (Auto) 1.3 K/uL (1.0-4.3) 10/06/17 08:02 [place] # (Auto) 0.4 K/uL (0.0-0.8) 10/06/17 08:02 Eos # (Auto) 0.1 K/uL (0.0-0.7) 10/06/17 08:02 Baso # (Auto) 0.0 K/uL (0.0-0.2) 10/06/17 08:02 PT 12.5 SECONDS (9.7-12.2) H 10/05/17 14:07 INR 1.1 10/05/17 14:07 APTT 31 SECONDS (21-34) 10/05/17 14:07 Sodium 140 mmol/L (132-148) 10/06/17 08:02 Potassium 3.8 mmol/L (3.6-5.2) 10/06/17 08:02 Chloride 104 mmol/L (98-107) 10/06/17 08:02 Carbon Dioxide 28 mmol/L (22-30) 10/06/17 08:02 Anion Gap 13 (10-20) 10/06/17 08:02 BUN 16 mg/dL (7-17) 10/06/17 08:02 Creatinine 0.6 mg/dL (0.7-1.2) L 10/06/17 08:02 Est GFR ( Amer) > 60 10/06/17 08:02 Est GFR (Non-Af Amer) > 60 10/06/17 08:02 POC Glucose (mg/dL) 81 mg/dL (65-110) 10/06/17 11:24 Random Glucose 81 mg/dL (65-105) 10/06/17 08:02 Hemoglobin A1c 6.2 % (4.2-6.5) 10/05/17 14:07 Calcium 8.5 mg/dl (8.6-10.4) L 10/06/17 08:02 Phosphorus 3.2 mg/dL (2.5-4.5) 10/06/17 08:02 Magnesium 1.7 mg/dL (1.6-2.3) 10/06/17 08:02 Total Bilirubin 0.5 mg/dL (0.2-1.3) 10/06/17 08:02 AST 27 U/L (14-36) 10/06/17 08:02 ALT 24 U/L (9-52) 10/06/17 08:02 Alkaline Phosphatase 59 U/L (38-126) 10/06/17 08:02 Ammonia < 9 umol/L (9-33) L 10/05/17 17:57 Troponin I < 0.0120 ng/mL (0.00-0.120) 10/05/17 14:07 Total Protein 6.0 g/dL (6.3-8.3) L 10/06/17 08:02 Albumin 3.2 g/dL (3.5-5.0) L D 10/06/17 08:02 Globulin 2.7 gm/dL (2.2-3.9) 10/06/17 08:02 Albumin/Globulin Ratio 1.2 (1.0-2.1) 10/06/17 08:02 Triglycerides 108 mg/dL (0-149) D 10/05/17 14:07 Cholesterol 162 mg/dL (0-199) 10/05/17 14:07 LDL Cholesterol Direct 106 mg/dL (0-129) 10/05/17 14:07 HDL Cholesterol 33 mg/dL (30-70) 10/05/17 14:07 Vitamin B12 634 pg/mL (239-931) 10/05/17 17:57 Free T4 1.40 ng/dL (0.78-2.19) 10/06/17 08:02 Total T3 1.45 nmol/L (1.49-2.60) L 10/06/17 08:02 TSH 3rd Generation 2.60 mIU/L (0.46-4.68) 10/06/17 08:02 Urine Color Straw (YELLOW) 10/05/17 15:37 Urine Clarity Clear (Clear) 10/05/17 15:37 Urine pH 7.0 (5.0-8.0) 10/05/17 15:37 Ur Specific [place] 1.004 (1.003-1.030) 10/05/17 15:37 Urine Protein Negative mg/dL (NEGATIVE) 10/05/17 15:37 Urine Glucose (UA) Normal mg/dL (Normal) 10/05/17 15:37 Urine Ketones Negative mg/dL (NEGATIVE) 10/05/17 15:37 Urine Blood 1+ (NEGATIVE) H 10/05/17 15:37 Urine Nitrate Negative (NEGATIVE) 10/05/17 15:37 Urine Bilirubin Negative (NEGATIVE) 10/05/17 15:37 Urine Urobilinogen Normal mg/dL (0.2-1.0) 10/05/17 15:37 Ur Leukocyte Esterase Neg [place]/uL (Negative) 10/05/17 15:37 Urine WBC (Auto) 1 /hpf (0-5) 10/05/17 15:37 Urine RBC (Auto) 5 /hpf (0-3) H 10/05/17 15:37 Ur Squamous Epith Cells 1 /hpf (0-5) 10/05/17 15:37 Blood Type B POSITIVE 10/05/17 14:07 Antibody Screen Negative 10/05/17 14:07 Attending/Attestation - Attestation I have personally seen and examined this patient.: Yes I have fully participated in the care of the patient.: Yes I have reviewed all pertinent clinical information, including history, physical exam and plan: Yes Notes (Text): 10/07/17 07:28 Medical attending: Patient was very alert and awake. She answered questions appropirately and very quickly. She always tried to make us laugh she says because she explains she has anxiety and laughter makes her feel better. On exam she did not have any upper extremity weakness or shaking. The MRI was stable, no acute findings. Also lab work was stable as well. Yesterday I had spoken with her PMD and explained that she would be discharged the following day. Family was also notified as well Koko Reilly
[2017-10-07] MEDS ORDERED: Pneumococcal 23-Valent Vaccine IM ONE (12:00)
== END 2017-10-06 15:17 | disposition home or self-care (01) ==
LOC: C.ER 13:41 → C.9E 15:40 → C.6T 18:28
PROVIDERS: ADMIT Hospitalist; ATTEND Hospitalist
DX: F03.90 Unspecified dementia, unspecified severity, without behavioral disturbance, psychotic disturbance, mood disturbance, and anxiety (principal); F41.9 Anxiety disorder, unspecified; I10 Essential (primary) hypertension; M40.209 Unspecified kyphosis, site unspecified; M81.0 Age-related osteoporosis without current pathological fracture; R47.01 Aphasia; Z79.82 Long term (current) use of aspirin; Z79.899 Other long term (current) drug therapy; Z80.8 Family history of malignant neoplasm of other organs or systems
CPT/HCPCS: 36415; 70450; 70551; 71045; 80053; 80061; 81001; 82140; 82607; 82948; 83036; 83735; 84100; 84439; 84443; 84480; 84484; 85025; 85610; 85730; 86850; 86900; 87086; 96374; 97110; 97116; 97162; 99285; G0378; G8978; G8979; J1644; J2060; J7040